=== PATIENT | male | born 1980 ===

== ENCOUNTER 2020-04-09 15:46 | Emergency (ER) | payer SELFPAY ==
[2020-04-09 17:02] LABS: ANION GAP 15.6 mEq/L (7-13); CHLORIDE,CL 98 mmol/L (98-107); SODIUM,NA 136 mmol/L (136-145)
--- NOTE | 2020-04-09 17:03 | CR ---
PROCEDURE INFORMATION: Exam: XR Abdomen, 1 View Exam date and time: 04/09/2020 4:56 PM Age: 39 years old Clinical indication: Other: Covid +; Abdominal discomfort; Cough TECHNIQUE: Imaging protocol: XR of the abdomen. Views: Frontal supine view of the abdomen. 1 View. COMPARISON: No relevant prior studies available. FINDINGS: Gastrointestinal tract: Normal. No bowel dilation. Bones/joints: Unremarkable. IMPRESSION: No acute findings.
--- NOTE | 2020-04-09 17:09 | EDM.PDOC ---
ED HPI GENERAL MEDICAL PROBLEM - General Chief Complaint: Gastrointestinal Problem Stated Complaint: COVID+, SEVERE DIAHRREA Time Seen by Provider: 04/09/20 16:30 Source of Information: Reports: Patient, RN, RN Notes Reviewed History Limitations: Reports: No Limitations - History of Present Illness INITIAL COMMENTS - FREE TEXT/NARRATIVE: Patient presents to the ED via personal vehicle with complaints of fatigue, abdominal pain, bloating, and nausea. The patient states he tested positive for COVID on 04/01/20, following symptoms of cough and fever that began on 03/31/20. [place] upset[place] his stomach. He has been taking ibuprofen 600mg PO q6h for fever and muscle aches which has provided his some relief in symptoms. The patient states he has not been eating or drinking as normal and was assessed by his medics today for possible dehydration; his Medics gave him a 500cc bolus of IVF and instructed him to come to the ED. The patient denies shaking chills, vision changes, sore throat, chest pain, palpitations, shortness of breath, vomiting, dysuria, hematuria, melena, or hematochezia. He does attest to loose stools for which he has taken Imodium. Generalized Pain Score (Numeric/FACES): 4 - Related Data Allergies Allergy/AdvReac Type Severity Reaction Status Date / Time No Known Allergies Allergy Verified 04/09/20 16:09 Home Meds: Home Meds . [No Known Home Meds] 04/09/20 [History] Past Medical History - Past Health History Medical/Surgical History: Denies Medical/Surgical History Social & Family History - Tobacco Use Tobacco Use Status *Q: Never Tobacco User - Recreational Drug Use Recreational Drug Use: No ED ROS GENERAL - Review of Systems Review Of Systems: Comprehensive ROS is negative, except as noted in HPI. ED EXAM, GI/ABD - Physical Exam Exam: See Below Exam Limited By: No Limitations General Appearance: Alert, No Apparent Distress Eyes: Bilateral: Normal Appearance, EOMI Ears: Normal External Exam, Normal Canal, Hearing Grossly Normal, Normal TMs Nose: Normal Inspection, Normal Mucosa, No Blood Throat/Mouth: Normal Voice, No Airway Compromise. No: Normal Oropharynx (Dry mucous membranes) Head: Atraumatic, Normocephalic Neck: Supple, Full Range of Motion, Lymphadenopathy (L), Tender Midline. No: Lymphadenopathy (R) Respiratory/Chest: No Respiratory Distress, Lungs Clear, No Accessory Muscle Use, Chest Non-Tender, Wheezing (Inspiratory to left upper lobe) Cardiovascular: Normal Peripheral Pulses, Regular Rate, Rhythm, No Edema, No Gallop, No JVD, No Murmur, No Rub GI/Abdominal Exam: Soft, No Distention, No Mass, Tender (To RUQ), Abnormal Bowel Sounds (Hyperactive bowel sounds) (Male) Exam: Deferred Rectal (Males) Exam: Deferred Back Exam: Normal Inspection, Full Range of Motion. No: CVA Tenderness (L), CVA Tenderness (R) Extremities: Normal Inspection, Normal Range of Motion, Non-Tender, Normal Capillary Refill, No Pedal Edema Neurological: Alert, Oriented, CN II-XII Intact, Normal Cognition, Normal Gait, No Motor/Sensory Deficits Psychiatric: Normal Affect, Normal Mood Skin Exam: Warm, Dry, Intact, Normal Color, No Rash. No: Ecchymosis, Erythema, Jaundice, Mottled, Pallor, Petechiae Course - Vital Signs Last Recorded V/S: Last Vital Signs Temp 97.3 F 04/09/20 16:05 Pulse 87 04/09/20 16:05 Resp 14 04/09/20 16:05 BP 138/86 04/09/20 16:05 Pulse Ox 99 04/09/20 16:05 - Orders/Labs/Meds Labs: Laboratory Tests 04/09/20 04/09/20 04/09/20 Range/Units 16:35 16:35 16:35 WBC 4.3 L (5.0-10.0) 10^3/uL RBC 4.26 L (4.6-6.2) 10^6/uL Hgb 12.8 L (14.0-18.0) g/dL Hct 35.9 L (40.0-54.0) % MCV 84.3 (80-100) fL MCH 30.0 (27.0-34.0) pg MCHC 35.7 H (33.0-35.0) g/dL Plt Count 233 (150-450) 10^3/uL Neut % (Auto) 51.7 (42.2-75.2) % Lymph % (Auto) 37.9 (20.5-50.1) % [place] % (Auto) 9.9 H (2-8) % Eos % (Auto) 0.5 L (1.0-3.0) % Baso % (Auto) 0.0 (0.0-1.0) % Add Manual Diff Yes Neutrophils % (Manual) 55 (42-75) % Lymphocytes % (Manual) 39 (20-50) % Atypical Lymphs % 1 % Monocytes % (Manual) 5 (2-8) % Sodium 136 (136-145) mmol/L Potassium 3.6 (3.5-5.1) mmol/L Chloride 98 (98-107) mmol/L Carbon Dioxide 26 (21-32) mmol/L Anion Gap 15.6 H (7-13) mEq/L BUN 12 (7-18) mg/dL Creatinine 1.02 (0.70-1.30) mg/dL Est Cr Clr Drug Dosing 92.71 mL/min Estimated GFR (MDRD) > 60 BUN/Creatinine Ratio 11.8 (No establ ref range) Glucose 116 H (74-99) mg/dL Lactic Acid 1.0 (0.4-2.0) mmol/L Calcium 8.4 L (8.5-10.1) mg/dL Magnesium 2.2 (1.8-2.4) mg/dL Total Bilirubin 0.5 (0.2-1.0) mg/dL AST 41 H (15-37) U/L ALT 78 H (16-63) U/L Alkaline Phosphatase 63 (46-116) U/L C-Reactive Protein 1.0 H (0.0-0.9) mg/dL Total Protein 8.1 (6.4-8.2) g/dL Albumin 3.7 (3.4-5.0) g/dL Globulin 4.4 Albumin/Globulin Ratio 0.8 Amylase 80 (25-115) U/L Lipase 162 (73-393) U/L - Re-Assessments/Exams Free Text/Narrative Re-Assessment/Exam: 04/09/20 CBC unremarkable for acute processes; no evidence of bacterial infection but mild anemia noted . LFTs mildly elevated, likely transient in nature d/t active COVID infection. Anion gap open at 15.6. Fasting glucose elevated at 116; patient states he has been previously told he is pre-diabetic, he does not currently take any antidiabetic medications. CXR remarkable for right lower lobe infiltrate; given lack of left shift and no WBC elevation will treat this as COVID pneumonia. KUB unremarkable for acute processes. Will treat symptoms of nausea with Zofran ODT 4mg and abdominal cramping with Bentyl 20mg. Discussed blood work and imaging with patient and his via phone call. Red flag signs and symptoms which would warrant reevaluation discussed. Diet and fluid recommendations discussed. Patient's requesting hydroxychloroquine for the patient due to his COVID diagnosis; discussed lack of efficacious evidence associated with this medication and a COVID infection. Patient verbalized understanding and agreement with the plan of care. Departure - Departure Time of Disposition: 17:37 Disposition: Home, Self-Care 01 Condition: Good Clinical Impression: Pneumonia due to COVID-19 virus, Gastroenteritis due to COVID-19 virus, Elevated LFTs - Discharge Information *PRESCRIPTION DRUG MONITORING PROGRAM REVIEWED*: Not Applicable *COPY OF PRESCRIPTION DRUG MONITORING REPORT IN PATIENT LISA: Not Applicable Instructions: What You Should Know About COVID-19 to Protect Yourself and Others - CDC, 10 Things You Can Do to Manage Your COVID-19 Symptoms at Home - CDC, COVID-19: How to Protect Yourself and Others - CDC Referrals: PCP,None [Primary Care Provider] - Forms: ED Department Discharge Additional Instructions: Rx: Bentyl Rx: Zofran 1.) Drink plenty of water to stay hydrated. 2.) Eat a bland diet, avoid spicy, greasy, high-fat foods. 3.) Continue to follow State Health Department Guidelines regarding quarantine. Sepsis Event Note (ED) - Evaluation Sepsis Screening Result: No Definite Risk - Focused Exam Vital Signs: Vital Signs Temp Pulse Resp BP Pulse Ox 04/09/20 16:05 97.3 F 87 14 138/86 99
--- NOTE | 2020-04-09 17:13 | CR ---
PROCEDURE INFORMATION: Exam: XR Chest, 1 View Exam date and time: 04/09/2020 4:54 PM Age: 39 years old Clinical indication: Other: Covid +; Abdominal discomfort; Cough TECHNIQUE: Imaging protocol: XR of the chest Views: 1 view. COMPARISON: No relevant prior studies available. FINDINGS: Lungs: Patchy airspace opacity right lung base. There are low lung volumes . Pleural spaces: Unremarkable. No pleural effusion. No pneumothorax. Heart/Mediastinum: Unremarkable. No cardiomegaly. Bones/joints: Unremarkable. IMPRESSION: Right basilar infiltrate
== END 2020-04-09 17:46 | disposition home or self-care (01) ==
LOC: DL.ED 15:46
DX: U07.1 COVID-19 (principal); J12.82 Pneumonia due to coronavirus disease 2019; A08.39 Other viral enteritis; R79.89 Other specified abnormal findings of blood chemistry
CPT/HCPCS: 36415; 71045; 74018; 80053; 82150; 83605; 83690; 83735; 85025; 86140; 99284; 99284-25